=== PATIENT | female | born 1990 | race Hispanic/Latino ===

== ENCOUNTER 2021-02-06 12:22 | Emergency (ER) | payer MEDICAID, OTHER ==
[~2021-02-06] VITALS: Ht 157.5 cm; Wt 99.8 kg
[2021-02-06 12:24] VITALS: BP 134/79
[2021-02-06] MEDS ORDERED: FLUORESCEIN SODIUM 1 STRIP STRIP ONE (13:02)
[2021-02-06] MEDS ORDERED: TETRACAINE HCL 0.5% 4 ML OPHTH SOLN ONE (13:02)
[2021-02-06] MEDS ORDERED: GENTAMICIN SULFATE 0.3% 5ML DROPS OD SCH (14:00)
[2021-02-06] MEDS ORDERED: TETANUS/DIPHTHERIA TOXOID [ADULT] 0.5 ML VIAL IM ONE (14:00)
[2021-02-06] MEDS ORDERED: TETRACAINE HCL 0.5% 4 ML OPHTH SOLN OP SCH (14:00)
== END 2021-02-06 13:52 | disposition home or self-care (01) ==
LOC: EDH 12:22
DX: S05.01XA Injury of conjunctiva and corneal abrasion without foreign body, right eye, initial encounter (principal); X58.XXXA Exposure to other specified factors, initial encounter; Y93.89 Activity, other specified; Y92.89 Other specified places as the place of occurrence of the external cause; Y99.8 Other external cause status
CPT/HCPCS: 90471; 90714

== ENCOUNTER 2021-02-09 17:23 | Emergency (ER) | payer MEDICAID, OTHER ==
[~2021-02-09] VITALS: Ht 157.5 cm; Wt 99.8 kg
[2021-02-09 17:24] VITALS: BP 111/74
[2021-02-09] MEDS ORDERED: FLUORESCEIN SODIUM 1 STRIP STRIP OP SCH (18:00)
[2021-02-09] MEDS ORDERED: TETRACAINE HCL 0.5% 4 ML OPHTH SOLN OP SCH (18:00)
[2021-02-09] MEDS ORDERED: TETRACAINE HCL 0.5% 4 ML OPHTH SOLN ONE (18:01)
[2021-02-09] MEDS ORDERED: FLUORESCEIN SODIUM 1 STRIP STRIP ONE (18:01)
== END 2021-02-09 18:46 | disposition home or self-care (01) ==
LOC: EDH 17:23
DX: T15.01XA Foreign body in cornea, right eye, initial encounter (principal); X58.XXXA Exposure to other specified factors, initial encounter; Y93.89 Activity, other specified; Y92.89 Other specified places as the place of occurrence of the external cause; Y99.8 Other external cause status
CPT/HCPCS: 65220

== ENCOUNTER 2021-06-04 05:04 | Emergency (ER) | payer MEDICAID, OTHER ==
[~2021-06-04] VITALS: Ht 160 cm; Wt 108.9 kg
[2021-06-04] MEDS ORDERED: MAG/ALUM/SIMETH 30 ML UDCUP ONE (05:37)
[2021-06-04] MEDS ORDERED: LIDOCAINE HCL 2% VISCOUS 15 ML UDCUP ONE (05:37)
[2021-06-04] MEDS ORDERED: AMOX/CLAV 875/125MG TAB PO ONE (08:00)
[2021-06-04] MEDS ORDERED: KETOROLAC 15MG/ML VIAL (15MG/ML) IM ONE (08:00)
[2021-06-04] MEDS ORDERED: HYDROCODONE/ACETAMINOPHEN 5/325 MG TAB PO ONE (08:00)
[2021-06-04] MEDS ORDERED: ACET1TAB25 PO (08:02)
[2021-06-04] MEDS ORDERED: AMOX-429 PO (08:02)
[2021-06-04] MEDS ORDERED: IBUP-2070 PO (08:02)
[2021-06-04 08:43] VITALS: BP 122/74
== END 2021-06-04 08:58 | disposition home or self-care (01) ==
LOC: EDH 05:04
DX: H66.91 Otitis media, unspecified, right ear (principal)
CPT/HCPCS: 81025; 96372; 99283; J1885

== ENCOUNTER 2022-11-27 21:00 | Emergency (ER) | payer OTHER ==
[~2022-11-27] VITALS: Ht 162.6 cm; Wt 109.8 kg
[~2022-11-27 21:00] MED LIST: ACET-2079 PO; AMOX-429 PO; IBUP-2070 PO
[2022-11-27] MEDS ORDERED: LACTATED RINGERS 1000ML 1,000 ML IV ONE (22:00)
[2022-11-27] MEDS ORDERED: FAMOTIDINE 20MG VIAL IV ONE (22:00)
[2022-11-27] MEDS ORDERED: KETOROLAC 30MG VIAL (30MG/ML) IVP ONE (22:00)
[2022-11-27 22:06] LABS: BASOPHILS % (AUTO) 0.3 % (0.0-5.0); EOSINOPHILS % (AUTO) 0.6 % (0.0-8.0); HEMATOCRIT 41.8 % (36-48); LYMPHOCYTES % (AUTO) 16.9 % (21.0-51.0); MEAN CORPUSCULAR HEMOGLOBIN 27.7 pg (27.0-33.0); MEAN CORPUSCULAR HGB CONC 33.3 g/dL (32.0-36.0); MEAN CORPUSCULAR VOLUME 83.4 fL (79-99); MONOCYTES % (AUTO) 4.5 % (3.0-13.0); NEUTROPHILS % (AUTO) 77.4 % (40.0-77.0); PLATELET COUNT (AUTO) 291 K/uL (130-400); RED BLOOD CELL COUNT(AUTO) 5.01 MIL/uL (4.00-5.50); WHITE BLOOD COUNT (AUTO) 6.9 K/uL (4.8-10.8)
[2022-11-27 22:20] LABS: CREATININE 0.8 mg/dL (0.5-1.5); POTASSIUM 3.7 mmol/L (3.5-5.1)
[2022-11-27 22:24] LABS: ALBUMIN 3.9 g/dL (3.5-5.0); TOTAL PROTEIN, SERUM 8.3 g/dL (6.0-8.3)
[2022-11-27 22:27] LABS: APPEARANCE,URINE CLEAR (CLEAR); BILIRUBIN,URINE NEGATIVE (NEGATIVE); COLOR,URINE LIGHT-YELLOW (YELLOW); GLUCOSE, URINE (UA) NEGATIVE (NEGATIVE); KETONES,URINE NEGATIVE (NEGATIVE); LEUKOCYTE ESTERASE ,URINE 75 Leu/uL (NEGATIVE); NITRATE,URINE NEGATIVE (NEGATIVE); OCCULT BLOOD,URINE NEGATIVE (NEGATIVE); PH,URINE 5.5 (5.0-8.0); PROTEIN,URINE NEGATIVE (NEGATIVE); UROBILINOGEN,URINE 0.2 mg/dL (0.2-1.0)
[2022-11-27 22:43] LABS: BACTERIA,URINE RARE /HPF (None Seen); MUCUS,URINE RARE LPF (None Seen); SQUAMOUS EPITHELIAL CELL,UR MOD /HPF (0-2)
[2022-11-27 22:45] LABS: INR 0.99 (0.85-1.15); PROTHROMBIN TIME 11.5 SEC (9.6-11.6)
[2022-11-27 22:47] LABS: PARTIAL THROMBOPLASTIN TIME 26.7 SEC (26.3-35.5)
[2022-11-27 23:37] VITALS: BP 118/63
[2022-11-27] MEDS ORDERED: METO-296 PO (23:43)
[2022-11-27] MEDS ORDERED: PHEN-847 PO (23:43)
[2022-11-27] MEDS ORDERED: CEPH500B PO (23:43)
[2022-11-28] MEDS ORDERED: CEPHALEXIN 500 MG CAPSULE PO ONE
== END 2022-11-27 23:48 | disposition home or self-care (01) ==
LOC: EDH 21:00
DX: G44.209 Tension-type headache, unspecified, not intractable (principal); N39.0 Urinary tract infection, site not specified; Z20.822 Contact with and (suspected) exposure to COVID-19; Z79.899 Other long term (current) drug therapy
CPT/HCPCS: 99284; 96374; 87635; 96361; 96375; 82550; 84484; 80053; 85025; 85610; 85730; 87040 ×2; 87088; 87880; 87804 ×2; 83605; 81001; 36415; C9803; J7120; J3490; J1885